=== PATIENT | female | born 1975 | race Caucasian/White ===

== ENCOUNTER → 2020-07-07 09:56 | Outpatient (CLI) | payer BC, SELFPAY ==
--- NOTE | ~2020-07-07 | US_ITS ---
EXAMINATION: US thyroid EXAM DATE: 07/07/2020 10:09 INDICATION: Enlarged thyroid TECHNIQUE: Multiple grayscale and Doppler images of the thyroid were obtained (by a technologist who performed the scan) and subsequently reviewed. Individual nodules and recommendations may be reporte d in accordance with TI-RADS system as designated by the 2017 ACR White Paper TI-RADS committee. Comp viral is made to prior examination from 07/03/2018. FINDINGS: The right thyroid lobe measures 5.7 x 1.5 x 1.6 cm, the left measuring 5.5 x 1.5 x 1.9 cm. Dimensions are mildly enlarged. There is mildly diffusely heterogeneous thyroid echogenicity. In the left thyroid lobe midpole there is a nodule measuring 1.1 x 0.8 x 1.3 cm, solid (2 points), hy poechoic (2 points), wider than tall, smooth margin, without echogenic foci, category TR4 for this no dule. This is not significantly changed compared to prior study. IMPRESSION: 1. Mild terminale. 2. Stable left thyroid lobe nodule. Consider additional follow-up ultrasound in 1-2 years. Reviewed, dictated and finalized at location A. ATRIC GENETIC COUNSELOR IMPRESSION: 1. Mild terminale. 2. Stable left thyroid lobe nodule. Consider additional follow-up ultrasound i n 1-2 years.
== END ==
PROVIDERS: Visit Provider Nurse Practitioner
DX: E04.9 Nontoxic goiter, unspecified (principal)
CPT/HCPCS: 76536

== ENCOUNTER → 2021-09-22 07:25 | Outpatient (CLI) | payer BC, SELFPAY ==
--- NOTE | ~2021-09-22 | XR_ITS ---
XR hip BI 2V w AP pelvis DATE: 09/22/2021 07:53 INDICATION: Right hip pain TECHNIQUE: AP pelvis. AP and lateral views of each hip. COMPARISON: 06/23/2009 right hip FINDINGS: An IUD overlies the pelvis. There is minimal spurring of the right femoral head consistent with mild osteoarthritis at the right hip. No fracture, dislocation, avascular necrosis or bone destruction of either hip is evident. The pubic symphysis and sacroiliac joints are intact. Probable bone island at the subtrochanteric area of the left femur. IMPRESSION: Mild right hip osteoarthritis Reviewed, dictated and finalized at location B. ULTING PRACTICE MANAGER
== END ==
PROVIDERS: PCP Family Medicine; Visit Provider Family Medicine
DX: M16.11 Unilateral primary osteoarthritis, right hip (principal); Z97.5 Presence of (intrauterine) contraceptive device
CPT/HCPCS: 73521

== ENCOUNTER 2022-03-08 09:28 | Outpatient (CLI) | payer BC, SELFPAY | END 2022-03-08 09:29 | disposition home or self-care (01) | LOC: ANHGOSHLAB 09:31 | PROVIDERS: PCP Family Medicine; Referring Provider Obstetrics & Gynecology Gynecology; Visit Provider Nurse Practitioner Family | DX: E55.9 Vitamin D deficiency, unspecified (principal); E78.5 Hyperlipidemia, unspecified; I10 Essential (primary) hypertension; Z00.00 Encounter for general adult medical examination without abnormal findings | CPT/HCPCS: 36415 ==

== ENCOUNTER → 2023-05-13 08:49 | Outpatient (CLI) | payer BC, SELFPAY ==
--- NOTE | ~2023-05-13 | XR_ITS ---
Right Knee Technique: AP and lateral views were obtained. Clinical History: Pain Findings: No fracture or dislocation is seen. Osseous alignment is anatomic. Joint spaces are preserv ed without degenerative or erosive change. Soft tissues are unremarkable. No joint effusion is seen. Impression: Unremarkable right knee radiographs. Reviewed, dictated and finalized at location . Impression: Unremarkable right knee radiographs.
== END ==
PROVIDERS: PCP Nurse Practitioner Family; Visit Provider Nurse Practitioner Family
DX: M25.561 Pain in right knee (principal)
CPT/HCPCS: 73560

== ENCOUNTER → 2023-05-26 10:10 | Outpatient (CLI) | payer BC, SELFPAY ==
--- NOTE | ~2023-05-26 | MM_ITS ---
EXAMINATION: MM screening karlene BI w andrae HISTORY: Baseline screening mammogram TECHNIQUE: Craniocaudal and mediolateral oblique 3-D tomosynthesis images were obtained and synthetic 2-D images were generated. CAD analysis was submitted and interpreted. COMPARISON: None, baseline BREAST PARENCHYMAL COMPOSITION: There are scattered areas of fibroglandular density. FINDINGS: RIGHT BREAST: There is a mass in the anterior/middle third of the outer breast approximately 4 cm fro m the nipple. LEFT BREAST: There are focal asymmetries in the posterior third of the upper outer quadrant of the br east in the middle third of the lower inner breast. In addition, there is a possible subareolar mass of the breast. IMPRESSION: 1. Bilateral breast findings as above. 2. Additional mammographic views and possible breast ultrasound are recommended to evaluate the bilat eral breast findings and establish a baseline given that this is the first mammographic examination. BI-RADS Category 0: Incomplete: Needs additional imaging evaluation. Reviewed, dictated and finalized at location A. IMPRESSION: 1. Bilateral breast findings as above. 2. Additional mammographic views and possible breast ultrasound are recommended to evaluate the bilateral breast findings and establish a baseline given that this is the first mammographic examination. BI-RADS Category 0: Incomplete: Needs additional imaging evaluation.
== END ==
PROVIDERS: PCP Nurse Practitioner Family; Visit Provider Nurse Practitioner
DX: Z12.31 Encounter for screening mammogram for malignant neoplasm of breast (principal); R92.8 Other abnormal and inconclusive findings on diagnostic imaging of breast
CPT/HCPCS: 77063; 77067

== ENCOUNTER → 2023-06-01 09:11 | Outpatient (CLI) | payer BC, SELFPAY ==
--- NOTE | ~2023-06-01 | US_ITS ---
EXAMINATION: US thyroid DATE: 06/01/2023 09:28 INDICATION: Nontoxic multinodular goiter. TECHNIQUE: Multiple ultrasound images of the thyroid were obtained. COMPARISON: Ultrasound 07/07/2020, 07/03/18 FINDINGS: The right thyroid lobe measures 5.9 x 1.3 x 1.9 cm. The left thyroid lobe measures 6.0 x 1.7 x 1.8 c m. In the right thyroid lobe, there is a 4 mm nodule. In the left thyroid lobe, there is a 14 mm emma id, hypoechoic, wider than tall nodule with smooth margin without echogenic foci (TI-RADS TR4), stabl e from 07/03/18. IMPRESSION: 1. Multinodular goiter, likely not clinically significant. No follow-up is needed. Reviewed, dictated and finalized at location A. IMPRESSION: 1. Multinodular goiter, likely not clinically significant. No follow-up is need ed.
== END ==
PROVIDERS: PCP Nurse Practitioner; Visit Provider Nurse Practitioner Family
DX: E04.2 Nontoxic multinodular goiter (principal)
CPT/HCPCS: 76536

== ENCOUNTER 2023-06-06 08:00 | Outpatient (RCR) | payer BC, SELFPAY ==
--- NOTE | 2023-05-23 09:39 | OPREHPOC ---
Outpatient Therapy Plan of Care This is a Multidisciplinary Plan of Care that may contain components documented by all disciplines (PT, OT, and ST.) PT Problem 1 PT Problem #1 Knowledge Deficit PT Goal 1 Goal Pt to be IND with issued HEP Target Visit 8 PT Problem 2 PT Problem #2 Pain PT Goal 1 Goal Pt to report lower leg pain no greater than 3/10 in the last week. Target Visit 8 PT Goal 2 Goal Pt to report 75% improvement in overall symptoms. Target Visit 8 PT Problem 3 PT Problem #3 Pain PT Goal 1 Goal Pt to report being able to sleep through the night without being woken d/t leg pain. Target Visit 8 PT Problem 4 PT Problem #4 Impaired Functional Mobil PT Goal 1 Goal Pt to be able to lift and carry 20 lb from ground level without compensations. Target Visit 8
--- NOTE | 2023-05-23 09:39 | PTOPEVAL1 ---
Assessment and note entered by Sam Manriquez, PT, DPT Evaluation Information Assessment Status Evaluation Diagnosis R leg pain with radiculopathy Onset 6-8 months Subjective Information Pt states when she had her son 22 years ago she had nerve damage and could not walk for a while afterwards. She states she has hip issues for over 5 years, and now has a pain that runs down the lateral side of her R leg, to her knee, and into her ankle. She states her toes will go numb. She states the worse pain is when she is laying down at night, she rates this as a 10/10. Pt does not work. Reported Pain Level Pain Score 0: Self Report Assessment PT Clinical Summary Ashlyn presents to therapy today for her initial evaluation with a diagnosis of ambrosio hip pain, R knee pain, and back pain. Today she demonstrates good LE strength and ROM, hypermobility of her hips and lumbar spine. Prone on elbows helps to decrease her peripheral symptoms. Skilled therapy services are indicated to address pain, improve core strength, improve spinal stability, and to return to PLOF without limitataions. Plan of Care Interventions Electrical Stimulation,Gait Training,Hot Pack/Cold Pack,Manual Therapy,Mechanical Traction,Neuro Re- education,Patient/Caregiver Educati,Therapeutic Activities,Therapeutic Exercise PT Services Indicated Yes Treatment Frequency and 2x/wk for 8 visits Duration These treatments will address the objective and functional deficits as defined above. The patient will be advanced safely and appropriately in order for the patient to progress towards his/her prior level of function. Additional exercises will be introduced and as well as a comprehensive home exercise program upon discharge, if needed, ?to ensure carryover of functional gains achieved in the clinic. This treatment plan has been reviewed and agreement upon by the patient.
--- NOTE | 2023-06-08 12:40 | PTOPDC ---
Assessment and note entered by Sam Manriquez, PT, DPT Evaluation Information Assessment Status Discharge - Pt Not Present Diagnosis R leg pain with radiculopathy Onset 6-8 months Subjective Information Pt called and cancelled all of her remaining appointments, she states she has an urgent family matter and cannot continue with therapy at this time. Assessment PT Clinical Summary Ashlyn completed 4 visits of skilled therapy from 05/23/23 to 06/06/23. She will be discharged at this time per pt request.
== END 2023-06-14 15:13 | disposition home or self-care (01) ==
LOC: ANHGOSHPT 08:00
PROVIDERS: PCP Nurse Practitioner Family; Visit Provider Nurse Practitioner Family
DX: M25.561 Pain in right knee (principal); M25.551 Pain in right hip; M25.552 Pain in left hip; M54.9 Dorsalgia, unspecified; G89.29 Other chronic pain
CPT/HCPCS: 97110; 97112; 97161; 97530

== ENCOUNTER 2023-06-10 12:04 | Outpatient (CLI) | payer BC, SELFPAY ==
--- NOTE | ~2023-06-10 | MMUS_ITS ---
EXAMINATION: MM diagnostic karlene BI w andrae, US breast RT limited, US breast LT complete HISTORY: Follow-up breast densities. TECHNIQUE: Additional 3-D tomosynthesis images of the breasts were performed and synthetic 2-D images were generated. CAD analysis was submitted and interpreted. High resolution Limited right hand compl ete left breast ultrasound was performed. COMPARISON: 05/26/2023 BREAST PARENCHYMAL COMPOSITION: Breast composed of scattered areas of fibroglandular density FINDINGS: MAMMOGRAPHIC FINDINGS: There is a small mass upper outer quadrant of the right breast, anterior-mid depth measuring approxim ately 5 mm by mammography. Left breast asymmetries are less apparent with spot compression views, mos t likely benign superimposed fibroglandular content. ULTRASOUND: Limited right breast ultrasound: At 10:00, 2 cm from the nipple, there is a cluster of microcysts laney suring 8 x 5 x 4 mm corresponding to the mammographic finding. Complete left breast ultrasound including all 4 quadrants in the subareolar location: At 12:00, 1 cm from the nipple, there is a 4 mm cyst. At 4:00, 4 cm from the nipple, there is a 3 mm cyst. No suspic ious masses to suggest malignancy. IMPRESSION: 1. No evidence for malignancy in either breast. Benign findings. 2. Routine yearly screening mammogram and regular clinical breast examination are recommended. BI-RADS Category 2: Benign finding(s). Reviewed, dictated and finalized at location A. IMPRESSION: 1. No evidence for malignancy in either breast. Benign findings. 2. Routine yearly screening mammogram and regular clinical breast examination a re recommended. BI-RADS Category 2: Benign finding(s). IMPRESSION: 1. No evidence for malignancy in either breast. Benign findings. 2. Routine yearly screening mammogram and regular clinical breast examination a re recommended. BI-RADS Category 2: Benign finding(s).
== END 2023-06-10 12:05 | disposition home or self-care (01) ==
LOC: ANHIMG 12:05
PROVIDERS: PCP Nurse Practitioner; Visit Provider Nurse Practitioner Family
DX: R92.8 Other abnormal and inconclusive findings on diagnostic imaging of breast (principal)
CPT/HCPCS: 76641; 76642; 77062; 77066; G0279

== ENCOUNTER → 2023-06-23 11:07 | Outpatient (CLI) | payer BC, SELFPAY ==
--- NOTE | ~2023-06-23 | US_ITS ---
EXAMINATION: US pelvic complete DATE: 06/23/2023 11:40 INDICATION: Menorrhagia Comparison:No prior studies for comparison. TECHNIQUE: Multiple transabdominal and endovaginal sonographic images of the pelvis performed. FINDINGS: The uterus measures 8.5 x 4.1 x 4.3 cm. There is an IUD present in the endometrium. The end ometrial complex measures 5 mm. The right ovary measures 2.9 x 1.9 x 1.2 cm and the left ovary measures 2 x 1.4 x 1.8 cm. There are small follicles in each ovary. Normal doppler signal in both ovaries. There is no free fluid in the pelvis. There are no abnormal masses seen on either side. IMPRESSION: 1. Unremarkable pelvic ultrasound. Reviewed, dictated and finalized at location A.
== END ==
PROVIDERS: PCP Nurse Practitioner; Visit Provider Nurse Practitioner
DX: N93.8 Other specified abnormal uterine and vaginal bleeding (principal)
CPT/HCPCS: 76856

== ENCOUNTER → 2023-06-29 13:20 | Outpatient (CLI) | payer BC, SELFPAY ==
--- NOTE | ~2023-06-29 | MR_ITS ---
MRI of the right knee Clinical history: Pain Technique: Coronal proton density and proton density-weighted images, sagittal proton-density and T2 fat-sat images, and axial proton-density fat-saturated images were acquired. Findings: Anterior and posterior cruciate ligaments are intact. Medial collateral ligament and the la teral collateral ligament conflux are intact. Popliteus tendon is intact. Medial and lateral menisci are intact, without evidence of tear. Articular cartilage is relatively well preserved throughout the knee. No suspicious bone marrow signa l abnormality seen. Extensor mechanism is intact. No significant joint effusion. No Fortune's cyst. Impression: No significant abnormality seen. Reviewed, dictated and finalized at location . [employer] Impression: No significant abnormality seen.
== END ==
PROVIDERS: PCP Nurse Practitioner Family; Visit Provider Nurse Practitioner Family
DX: M25.561 Pain in right knee (principal)
CPT/HCPCS: 73721